=== PATIENT | male | born 1950 | race Caucasian/White ===

== ENCOUNTER → 2017-04-09 | Outpatient (CLI) | payer OTHER | LOC: FIMAGING 08:30 | PROVIDERS: ATTEND Physician Assistant Surgical | DX: J90 Pleural effusion, not elsewhere classified (principal); J98.11 Atelectasis; Z95.1 Presence of aortocoronary bypass graft; Z95.828 Presence of other vascular implants and grafts ==

== ENCOUNTER → 2017-05-09 | Outpatient (CLI) | payer OTHER | LOC: FIMAGING 10:31 | PROVIDERS: ATTEND Internal Medicine Cardiovascular Disease | DX: R05 Cough (principal); Z95.1 Presence of aortocoronary bypass graft ==